=== PATIENT | male | born 1955 | race Caucasian/White ===

== ENCOUNTER 2017-09-15 11:43 | Inpatient (IN) | payer BC ==
[2017-09-15] VITALS (9 sets, daily range): BP systolic 109–145; BP diastolic 59–74
[~2017-09-15] VITALS: Ht 162.6 cm; Wt 94.0 kg
[2017-09-15] MEDS ORDERED: nitroGLYCERIN 1gm ointment UD TP ONE (12:05)
[2017-09-15 12:26] LABS: BASOPHILS % (AUTO) 0.2 % (0-1); EOSINOPHILS # (AUTO) 0.1 X10'3 (0-0.9); EOSINOPHILS % (AUTO) 0.7 % (0-6); HEMATOCRIT 44.5 % (42.0-52.0); HEMOGLOBIN 15.4 g/dl (14.0-17.9); LYMPHOCYTES # (AUTO) 4.1 X10'3 (1.1-4.8); LYMPHOCYTES % (AUTO) 27.9 % (21-51); MEAN CORPUSCULAR HEMOGLOBIN 30.6 PG (27.0-31.0); MEAN CORPUSCULAR HGB CONC 34.7 % (33.0-36.5); MEAN CORPUSCULAR VOLUME 88.3 FL (78-98); MEAN PLATELET VOLUME 9.7 FL (7.4-10.4); MONOCYTES # (AUTO) 0.7 X10'3 (0-0.9); MONOCYTES % (AUTO) 4.9 % (2-12); NEUTROPHILS # (AUTO) 9.9 X10'3 (1.8-7.7); NEUTROPHILS % (AUTO) 66.3 % (42-75); PLATELET COUNT 185 X10'3 (140-440); RED BLOOD COUNT 5.04 X10'6 (4.70-6.10); RED CELL DISTRIBUTION WIDTH 12.3 % (11.5-14.5); WHITE BLOOD COUNT 14.8 X10'3 (4.5-11.0)
[2017-09-15 12:46] LABS: ALANINE AMINOTRANSFERASE 42 U/L (12-78); ALBUMIN 3.9 G/DL (3.4-5.0); ALBUMIN/GLOBULIN RATIO 0.9 (1.1-1.5); ALKALINE PHOSPHATASE 93 IU/L (46-116); ANION GAP 11 (8-16); ASPARTATE AMINO TRANSFERASE 17 U/L (10-37); BILIRUBIN,TOTAL 0.4 MG/DL (0.1-1.0); BLOOD UREA NITROGEN 23 MG/DL (7-18); BUN/CREATININE RATIO 26.1 (5.4-32.0); CALCIUM 9.6 MG/DL (8.5-10.1); CHLORIDE 104 MMOL/L (99-107); CREATININE 0.88 MG/DL (0.60-1.10); GLUCOSE 218 MG/DL (70-104); MAGNESIUM 2.2 MG/DL (1.5-2.4); POTASSIUM 3.6 MMOL/L (3.5-5.1); SODIUM 142 MMOL/L (135-145); TOTAL CARBON DIOXIDE 26.8 MMOL/L (24-32); TOTAL PROTEIN 8.1 G/DL (6.4-8.2); eGFR 87 ML/MIN
[2017-09-15] MEDS ORDERED: morphine 4 MG/ML inj SYRINge IV ONE (13:10)
[2017-09-15] MEDS ORDERED: ondansetron/PF 4mg/2ml inj IV ONE (13:10)
[2017-09-15] MEDS ORDERED: CLON0.1T20 PO (13:27)
[2017-09-15] MEDS ORDERED: NIFE90TA44 PO (13:27)
[2017-09-15] MEDS ORDERED: ROSU10TA35 PO (13:27)
[2017-09-15] MEDS ORDERED: DICL-182 PO (13:27)
[2017-09-15] MEDS ORDERED: NITR0.4T48 (13:27)
[2017-09-15] MEDS ORDERED: METO25TA6 PO (13:27)
[2017-09-15] MEDS ORDERED: FURO40TA4 PO (13:27)
[2017-09-15] MEDS ORDERED: TRAM1TAB36 PO (13:28)
[2017-09-15] MEDS ORDERED: HYDROmorphone inj. 0.5 MG/0.5 ML DISP.SYRIN IV ONE (15:30)
[2017-09-15] MEDS ORDERED: iohexol 350MG/ML 100ml bottle IV ONE ×2 (15:35→16:36)
[2017-09-15 15:46] LABS: PARTIAL THROMBOPLASTIN TIME 27 SECONDS (22-32)
[2017-09-15] MEDS ORDERED: heparin, porcine 5000 units/ml vial ONE (16:23)
[2017-09-15] MEDS ORDERED: heparin, porcine 5000 units/ml vial IV SCH (16:30)
[2017-09-15] MEDS ORDERED: LIDOcaine 1% 30ml preserv. free vial ONE ×2 (16:36→17:16)
[2017-09-15] MEDS ORDERED: heparin 1,000unit/ml 10ml vial 10 ML ONE (16:49)
[2017-09-15] MEDS ORDERED: nitroGLYCERIN-Tridil 50MG/D5W 250 ML IV ONE (16:49)
[2017-09-15] MEDS ORDERED: midazolam 2 mg/2 ml injection ONE ×3 (16:49→17:21)
[2017-09-15] MEDS ORDERED: verapamil 2.5 mg/ml inj IV ONE (16:49)
[2017-09-15] MEDS ORDERED: fentaNYL/PF 50MCG/1 ML 2ML syringe ONE (16:49)
[2017-09-15] MEDS ORDERED: LIDOcaine 1%/PF (10mg/ml) 5ml vial ONE (16:50)
[2017-09-15] MEDS ORDERED: iohexol 350 MG/1 ML 200ml bottle ONE (17:41)
[2017-09-15] MEDS ORDERED: MESSAGE TO NURSING PO ONE ×3 (18:20)
[2017-09-15] MEDS ORDERED: nitroGLYCERIN 0.4mg SUBLingual tab SL SCH (18:20)
[2017-09-15] MEDS ORDERED: dextrose 50%-water 50ml dispensing syringe IV PRN (18:35)
[2017-09-15] MEDS ORDERED: chlorhexidine gluc 0.4% **topical ** 120ml btl. TP ONE (19:25)
[2017-09-15] MEDS ORDERED: heparin 10,000 units/1 ML INJ IV PRN (19:25)
[2017-09-15] MEDS ORDERED: HYDROcodone/acetaminophen 10/325mg tab PO PRN ×2 (20:00→20:30)
[2017-09-15] MEDS ORDERED: metoprolol tartrate 25mg tablet PO SCH (20:00)
[2017-09-15] MEDS ORDERED: nitroGLYCERIN 0.4mg SUBLingual tab SL PRN (20:00)
[2017-09-15] MEDS ORDERED: normal saline 1000ml 1,000 ML IV ONE (20:00)
[2017-09-15] MEDS ORDERED: ondansetron/PF 4mg/2ml inj IV PRN ×2 (20:00→20:30)
[2017-09-15] MEDS ORDERED: HYDROcodone/acetaminophen 5mg/325mg tablet PO PRN ×2 (20:00→20:30)
[2017-09-15] MEDS ORDERED: proCHLORperazine 10 MG/2 ml inj IV PRN (20:00)
[2017-09-15] MEDS ORDERED: normal saline 1000ml 1,000 ML IV SCH (20:29)
[2017-09-15] MEDS ORDERED: magnesium 2GM in 50ml NS 50 ML IV PRN (20:30)
[2017-09-15] MEDS ORDERED: K and/or MAG REPLACEMENT MC SCH (20:30)
[2017-09-15] MEDS ORDERED: magnesium Cl slow-release 64mg tablet PO PRN (20:30)
[2017-09-15] MEDS ORDERED: potassium Cl 40MEQ/NS 500ml 500 ML IV PRN ×2 (20:30)
[2017-09-15] MEDS ORDERED: morphine 4 MG/ML inj SYRINge IV PRN ×2 (20:30)
[2017-09-15] MEDS ORDERED: acetaminophen 325mg tablet PO PRN ×2 (20:30→21:00)
[2017-09-15] MEDS ORDERED: mag hydrox/Alum hydrox/simeth 30ml oral suspension PO PRN (20:30)
[2017-09-15] MEDS ORDERED: potassium Cl 20 mEq SR tablet PO PRN ×2 (20:30)
[2017-09-15] MEDS ORDERED: magnesium hydroxide 30ml (MOM) UD suspension PO PRN (20:30)
[2017-09-15] MEDS ORDERED: magnesium 4gm in 100ml NS 100 ML IV PRN (20:30)
[2017-09-15 20:42] LABS: PARTIAL THROMBOPLASTIN TIME 43 SECONDS (22-32)
[2017-09-15 20:44] LABS: ALBUMIN 3.4 G/DL (3.4-5.0); ANION GAP 9 (8-16); BLOOD UREA NITROGEN 16 MG/DL (7-18); BUN/CREATININE RATIO 22.5 (5.4-32.0); CALCIUM 8.8 MG/DL (8.5-10.1); CHLORIDE 107 MMOL/L (99-107); CREATININE 0.71 MG/DL (0.60-1.10); GLUCOSE 132 MG/DL (70-104); HEMOGLOBIN A1C 6.3 % (4.5-6.2); POTASSIUM 3.3 MMOL/L (3.5-5.1); SODIUM 145 MMOL/L (135-145); TOTAL CARBON DIOXIDE 29.4 MMOL/L (24-32); eGFR > 90 ML/MIN
[2017-09-15] MEDS ORDERED: cloNIDine 0.1 mg tablet PO SCH (21:00)
[2017-09-15] MEDS ORDERED: traMADol 50MG tablet PO PRN (21:00)
[2017-09-15] MEDS ORDERED: temazepam 15mg capsule PO PRN (21:00)
[2017-09-15 21:03] LABS: HEMOGLOBIN 14.1 g/dl (14.0-17.9); MEAN CORPUSCULAR HEMOGLOBIN 31.6 PG (27.0-31.0); MEAN CORPUSCULAR HGB CONC 35.3 % (33.0-36.5); MEAN CORPUSCULAR VOLUME 89.5 FL (78-98); MEAN PLATELET VOLUME 9.6 FL (7.4-10.4); PLATELET COUNT 172 X10'3 (140-440); RED BLOOD COUNT 4.47 X10'6 (4.70-6.10); WHITE BLOOD COUNT 15.6 X10'3 (4.5-11.0)
[2017-09-15] MEDS: mupirocin 2% ointment 22GM NS SCH (21:08)
[2017-09-16] VITALS (17 sets, daily range): BP systolic 126–170; BP diastolic 52–80
[2017-09-16 00:18] LABS: UA COLLECTION TYPE VOIDED
[2017-09-16 00:19] LABS: CLARITY,URINE CLEAR (Clear); COLOR,URINE YELLOW (Yellow); GLUCOSE, URINE NEGATIVE (Neg); KETONES,URINE NEGATIVE (Neg); LEUKOCYTE ESTERASE ,URINE NEGATIVE (Neg); NITRITES, URINE NEGATIVE (Neg); OCCULT BLOOD,URINE MODERATE (Neg); PROTEIN,URINE TRACE mg/dl (Neg); UROBILINOGEN,URINE 0.2 E.U/dL (0.2-1.0)
[2017-09-16 00:30] LABS: WBC,URINE 0-4 /HPF (0-4)
[2017-09-16 00:31] LABS: BACTERIA,URINE NONE SEEN /HPF (Neg); MUCUS STRANDS NONE SEEN /LPF (Neg); SQUAMOUS EPITHELIAL CELL,UR NONE SEEN /LPF (FEW)
[2017-09-16] MEDS ORDERED: OXAZEpam 15mg capsule PO PRN (00:45)
[2017-09-16] MEDS ORDERED: albuterol 2.5 MG/3 ML nebule ONE (00:50)
[2017-09-16] MEDS ORDERED: albuterol 2.5 MG/3 ML nebule NEB ONE (01:00)
[2017-09-16 01:16] LABS: ABG BASE EXCESS 0.1 mmol/L (-2.0-3.0); ABG HCO3 23.5 mmol/L (22.0-26.0); ABG OXYGEN SATURATION 94.9 % (95-98); ABG PCO2 (T) 33.4 mmHg (35.0-48.0); ABG PH (T) 7.462 (7.350-7.450); ABG PO2 (T) 68.7 mmHg (83-108); ALLEN'S TEST Positive; FCOHb 1.1 % (0.5-1.5); FMetHb 0.1 % (0.3-1.12); FO2Hb 93.8 % (94-100); TOTAL HEMOGLOBIN 14.4 G/dl (14.0-18.0)
[2017-09-16] MEDS ORDERED: MESSAGE TO NURSING PO ONE ×3 (05:00→10:00)
[2017-09-16] MEDS ORDERED: vancomycin/NS 1 GM ADD-VANTAGE 250 ML IV ONE (05:30)
[2017-09-16] MEDS ORDERED: ceFAZolin 2gm in dextrose, iso 100 ML IV ONE (05:30)
[2017-09-16] MEDS: mupirocin 2% ointment 22GM NS SCH ×2 (05:35→20:09)
[2017-09-16 05:57] LABS: ALANINE AMINOTRANSFERASE 54 U/L (12-78); ALBUMIN 3.1 G/DL (3.4-5.0); ALBUMIN/GLOBULIN RATIO 0.9 (1.1-1.5); ALKALINE PHOSPHATASE 73 IU/L (46-116); ANION GAP 11 (8-16); ASPARTATE AMINO TRANSFERASE 184 U/L (10-37); BILIRUBIN,TOTAL 0.5 MG/DL (0.1-1.0); BLOOD UREA NITROGEN 16 MG/DL (7-18); BUN/CREATININE RATIO 23.9 (5.4-32.0); CALCIUM 8.8 MG/DL (8.5-10.1); CHLORIDE 106 MMOL/L (99-107); CHOL/HDL RATIO 3.7 (0.00-4.99); CHOLESTEROL 140 MG/DL (0-200); CREATININE 0.67 MG/DL (0.60-1.10); GLUCOSE 107 MG/DL (70-104); HDL CHOLESTEROL 38 MG/DL (35-60); LDL CHOLESTEROL 79 MG/DL (50-100); MAGNESIUM 2.2 MG/DL (1.5-2.4); PHOSPHORUS 3.5 MG/DL (2.3-4.5); POTASSIUM 3.1 MMOL/L (3.5-5.1); SODIUM 144 MMOL/L (135-145); TOTAL CARBON DIOXIDE 27.3 MMOL/L (24-32); TOTAL PROTEIN 6.6 G/DL (6.4-8.2); TRIGLYCERIDES 130 MG/DL (20-135); eGFR > 90 ML/MIN
[2017-09-16 06:24] LABS: BASOPHILS % (AUTO) 0.2 % (0-1); EOSINOPHILS # (AUTO) 0.2 X10'3 (0-0.9); EOSINOPHILS % (AUTO) 1.4 % (0-6); HEMATOCRIT 36.9 % (42.0-52.0); LYMPHOCYTES # (AUTO) 4.2 X10'3 (1.1-4.8); LYMPHOCYTES % (AUTO) 32.4 % (21-51); MEAN CORPUSCULAR HEMOGLOBIN 31.5 PG (27.0-31.0); MEAN CORPUSCULAR HGB CONC 35.3 % (33.0-36.5); MEAN CORPUSCULAR VOLUME 89.2 FL (78-98); MEAN PLATELET VOLUME 9.8 FL (7.4-10.4); MONOCYTES # (AUTO) 0.8 X10'3 (0-0.9); MONOCYTES % (AUTO) 6.4 % (2-12); NEUTROPHILS # (AUTO) 7.8 X10'3 (1.8-7.7); NEUTROPHILS % (AUTO) 59.6 % (42-75); PLATELET COUNT 153 X10'3 (140-440); RED BLOOD COUNT 4.14 X10'6 (4.70-6.10); RED CELL DISTRIBUTION WIDTH 12.9 % (11.5-14.5)
[2017-09-16] MEDS ORDERED: ringers solution, lacted 1,000 ML IV ONE (06:29)
[2017-09-16] MEDS ORDERED: LORazepam 2 mg/ml vial IV ONE (06:30)
[2017-09-16] MEDS ORDERED: famotidine 20mg tablet PO ONE (06:40)
[2017-09-16] MEDS ORDERED: atorvastatin 20mg tablet PO SCH (08:00)
[2017-09-16] MEDS ORDERED: aspirin 81mg tab.chew PO SCH (08:00)
[2017-09-16 08:11] LABS: ABG BASE EXCESS -1.4 mmol/L (-2.0-3.0); ABG OXYGEN SATURATION 99.4 % (95-98); ABG PCO2 37.5 mmHg (35.0-45.0); ABG PH 7.406 (7.350-7.450); ABG PO2 290.9 mmHg (60.0-100.0); CL (ABG) 107 mmol/L (99-107); FCOHb 0.7 % (0.5-1.5); FMetHb 0.3 % (0.3-1.12); FO2Hb 98.4 % (94-100); GLUCOSE (ABG) 121 mg/dl (70-105); IONIZED CA (ABG) 1.15 mmol/L (1.03-1.32); K (ABG) 3.1 mmol/L (3.3-5.1); NA (ABG) 140 mmol/L (135-145); TOTAL HEMOGLOBIN 11.7 G/dl (14.0-18.0)
[2017-09-16] MEDS ORDERED: papaverine 30 mg/ml 2ml inj. IA ONE (08:23)
[2017-09-16] MEDS ORDERED: heparin 10,000 units/1 ML INJ IR ONE (08:24)
[2017-09-16 08:56] LABS: ACT @ 1.70 U 298 SEC (193-297); ACT @ 2.84 U 390 SEC (260-420); BASELINE ACT 148 SEC (101-148)
[2017-09-16] MEDS ORDERED: insulin Lispro (HumaLOG) vial - multi-dose SQ SCH (09:00)
[2017-09-16 09:55] LABS: ABG BASE EXCESS -0.5 mmol/L (-2.0-3.0); ABG HCO3 24.2 mmol/L (22.0-26.0); ABG PCO2 40.2 mmHg (35.0-45.0); ABG PH 7.398 (7.350-7.450); ABG PO2 375.3 mmHg (60.0-100.0); CL (ABG) 107 mmol/L (99-107); FCOHb 0.3 % (0.5-1.5); FMetHb 0.5 % (0.3-1.12); FO2Hb 98.2 % (94-100); GLUCOSE (ABG) 131 mg/dl (70-105); IONIZED CA (ABG) 1.04 mmol/L (1.03-1.32); NA (ABG) 137 mmol/L (135-145); TOTAL HEMOGLOBIN 9.9 G/dl (14.0-18.0)
[2017-09-16 10:10] LABS: ABG BASE EXCESS VENOUS -0.8 mmol/L; ABG HCO3 VENOUS 24.5 mmol/L; ABG PCO2 VENOUS 42.8 mmHg; ABG PO2 VENOUS 52.2 mmHg; CL (ABG) 107 mmol/L (99-107); FCOHb VENOUS 0.3 %; FHHb VENOUS 13.1 %; FMetHb VENOUS 0.4 %; FO2Hb VENOUS 86.2 %; GLUCOSE (ABG) 131 mg/dl (70-105); IONIZED CA (ABG) 1.07 mmol/L (1.03-1.32); K (ABG) 3.8 mmol/L (3.3-5.1); NA (ABG) 137 mmol/L (135-145); TOTAL HEMOGLOBIN 10.3 G/dl (14.0-18.0)
[2017-09-16 10:46] LABS: ABG BASE EXCESS -0.1 mmol/L (-2.0-3.0); ABG HCO3 23.5 mmol/L (22.0-26.0); ABG OXYGEN SATURATION 98.9 % (95-98); ABG PCO2 34.4 mmHg (35.0-45.0); ABG PH 7.453 (7.350-7.450); ABG PO2 392.4 mmHg (60.0-100.0); CL (ABG) 109 mmol/L (99-107); FCOHb 0.3 % (0.5-1.5); FMetHb 0.5 % (0.3-1.12); FO2Hb 98.1 % (94-100); GLUCOSE (ABG) 136 mg/dl (70-105); IONIZED CA (ABG) 1.03 mmol/L (1.03-1.32); K (ABG) 4.1 mmol/L (3.3-5.1); NA (ABG) 135 mmol/L (135-145); TOTAL HEMOGLOBIN 9.5 G/dl (14.0-18.0)
[2017-09-16 11:30] LABS: ABG BASE EXCESS 1.9 mmol/L (-2.0-3.0); ABG HCO3 25.9 mmol/L (22.0-26.0); ABG PH 7.452 (7.350-7.450); ABG PO2 500.4 mmHg (60.0-100.0); CL (ABG) 108 mmol/L (99-107); FMetHb 0.4 % (0.3-1.12); FO2Hb 98.6 % (94-100); GLUCOSE (ABG) 134 mg/dl (70-105); IONIZED CA (ABG) 1.47 mmol/L (1.03-1.32); NA (ABG) 136 mmol/L (135-145); TOTAL HEMOGLOBIN 8.7 G/dl (14.0-18.0)
[2017-09-16 12:00] LABS: ABG BASE EXCESS 0.5 mmol/L (-2.0-3.0); ABG HCO3 24.9 mmol/L (22.0-26.0); ABG OXYGEN SATURATION 98.4 % (95-98); ABG PCO2 38.8 mmHg (35.0-45.0); ABG PH 7.425 (7.350-7.450); ABG PO2 155.8 mmHg (60.0-100.0); CL (ABG) 108 mmol/L (99-107); FCOHb 0.3 % (0.5-1.5); FMetHb 0.3 % (0.3-1.12); FO2Hb 97.8 % (94-100); GLUCOSE (ABG) 146 mg/dl (70-105); IONIZED CA (ABG) 1.24 mmol/L (1.03-1.32); K (ABG) 3.9 mmol/L (3.3-5.1); NA (ABG) 138 mmol/L (135-145); TOTAL HEMOGLOBIN 9.9 G/dl (14.0-18.0)
[2017-09-16] MEDS ORDERED: sodium chloride 0.45% 1,000 ML IV SCH (12:36)
[2017-09-16] MEDS ORDERED: DOPamine 400mg/D5W 250ml 250 ML IV PRN (12:36)
[2017-09-16] MEDS ORDERED: metoclopramide 5 mg/ml inj IV PRN (12:40)
[2017-09-16] MEDS ORDERED: acetaminophen 325mg tablet PO PRN (12:40)
[2017-09-16] MEDS ORDERED: ondansetron/PF 4mg/2ml inj IV PRN (12:40)
[2017-09-16] MEDS ORDERED: magnesium 2GM in 50ml NS 50 ML IV PRN (12:40)
[2017-09-16] MEDS ORDERED: dextrose 50%-water 50ml dispensing syringe IV PRN (12:40)
[2017-09-16] MEDS ORDERED: morphine 4 MG/ML inj SYRINge IV PRN ×3 (12:40→14:25)
[2017-09-16] MEDS: insulin regular, human inj. 100 UNITS in normal saline 100ml IV soln 100 ML IV SCH ×4 (12:40→12:57)
[2017-09-16] MEDS ORDERED: magnesium 4gm in 100ml NS 100 ML IV PRN (12:40)
[2017-09-16] MEDS ORDERED: HYDROcodone/acetaminophen 10/325mg tab PO PRN (12:40)
[2017-09-16] MEDS ORDERED: Neutra Phos packet PO PRN (12:40)
[2017-09-16] MEDS ORDERED: sodium phosphate inj. 30 MMOL in dextrose 5%-water 250 ML IV PRN (12:40)
[2017-09-16] MEDS ORDERED: albumin (Human) 5% 250ml 250 ML IV PRN (12:40)
[2017-09-16] MEDS ORDERED: magnesium hydroxide 30ml (MOM) UD suspension PO PRN (12:40)
[2017-09-16] MEDS ORDERED: normal saline 250ml IV soln 250 ML IV PRN (12:40)
[2017-09-16] MEDS ORDERED: potassium Cl 20mEq/100mL bag 100 ML IV PRN ×2 (12:40)
[2017-09-16] MEDS ORDERED: sodium phosphate inj. 15 MMOL in dextrose 5%-water 150 ML IV PRN (12:40)
[2017-09-16 12:55] LABS: ACTIVATED CLOTTING TIME 148 SEC (101-148)
[2017-09-16] MEDS: insulin Lispro (HumaLOG) vial - multi-dose SQ SCH ×2 (13:00→17:54)
[2017-09-16 13:07] LABS: BASOPHILS % (AUTO) 0.3 % (0-1); EOSINOPHILS # (AUTO) 0.1 X10'3 (0-0.9); EOSINOPHILS % (AUTO) 0.3 % (0-6); HEMATOCRIT 32.6 % (42.0-52.0); HEMOGLOBIN 11.3 g/dl (14.0-17.9); LYMPHOCYTES # (AUTO) 3.4 X10'3 (1.1-4.8); LYMPHOCYTES % (AUTO) 19.5 % (21-51); MEAN CORPUSCULAR HEMOGLOBIN 30.6 PG (27.0-31.0); MEAN CORPUSCULAR HGB CONC 34.6 % (33.0-36.5); MEAN CORPUSCULAR VOLUME 88.6 FL (78-98); MEAN PLATELET VOLUME 9.2 FL (7.4-10.4); MONOCYTES # (AUTO) 0.5 X10'3 (0-0.9); MONOCYTES % (AUTO) 2.9 % (2-12); NEUTROPHILS # (AUTO) 13.4 X10'3 (1.8-7.7); PLATELET COUNT 121 X10'3 (140-440); RED BLOOD COUNT 3.68 X10'6 (4.70-6.10); RED CELL DISTRIBUTION WIDTH 12.9 % (11.5-14.5); WHITE BLOOD COUNT 17.4 X10'3 (4.5-11.0)
[2017-09-16 13:15] LABS: ABG BASE EXCESS -3.6 mmol/L (-2.0-3.0); ABG HCO3 22.2 mmol/L (22.0-26.0); ABG OXYGEN SATURATION 91.6 % (95-98); ABG PO2 (T) 68.7 mmHg (83-108); FCOHb 0.3 % (0.5-1.5); FMetHb 0.2 % (0.3-1.12); FO2Hb 91.1 % (94-100); MINUTE VOLUME 7 L/min; PEEP 5 cm H2O; RESPIRATORY RATE 12 b/min; RESPIRATORY RATE (OBSERVED) 12 b/min; TIDAL VOLUME 500 mL; TOTAL HEMOGLOBIN 12.2 G/dl (14.0-18.0)
[2017-09-16] MEDS: niCARDipine/sod cl 20mg/200ml 200 ML IV PRN ×5 (13:21→23:34)
[2017-09-16 13:23] LABS: ALANINE AMINOTRANSFERASE 37 U/L (12-78); ALBUMIN 2.5 G/DL (3.4-5.0); ALKALINE PHOSPHATASE 53 IU/L (46-116); ANION GAP 8 (8-16); ASPARTATE AMINO TRANSFERASE 112 U/L (10-37); BILIRUBIN,TOTAL 0.5 MG/DL (0.1-1.0); BLOOD UREA NITROGEN 14 MG/DL (7-18); BUN/CREATININE RATIO 16.7 (5.4-32.0); CALCIUM 8.2 MG/DL (8.5-10.1); CHLORIDE 111 MMOL/L (99-107); CREATININE 0.84 MG/DL (0.60-1.10); GLUCOSE 143 MG/DL (70-104); MAGNESIUM 3.8 MG/DL (1.5-2.4); PHOSPHORUS 1.8 MG/DL (2.3-4.5); POTASSIUM 3.6 MMOL/L (3.5-5.1); SODIUM 146 MMOL/L (135-145); TOTAL CARBON DIOXIDE 27.4 MMOL/L (24-32); eGFR > 90 ML/MIN
[2017-09-16 13:52] LABS: INR 1.1 INR; PARTIAL THROMBOPLASTIN TIME 26 SECONDS (22-32); PROTHROMBIN TIME 11.3 SECONDS (9.0-12.0)
[2017-09-16 14:11] LABS: ABG BASE EXCESS -6.7 mmol/L (-2.0-3.0); ABG HCO3 19.2 mmol/L (22.0-26.0); ABG OXYGEN SATURATION 88.7 % (95-98); ABG PCO2 (T) 39.5 mmHg (35.0-48.0); ABG PH (T) 7.304 (7.350-7.450); ABG PO2 (T) 60.4 mmHg (83-108); FCOHb 0.6 % (0.5-1.5); FMetHb 0.3 % (0.3-1.12); FO2Hb 87.9 % (94-100); MINUTE VOLUME 11 L/min; PEEP 5 cm H2O; RESPIRATORY RATE 12 b/min; RESPIRATORY RATE (OBSERVED) 15 b/min; TOTAL HEMOGLOBIN 12.9 G/dl (14.0-18.0)
[2017-09-16] MEDS ORDERED: propofol 1000mg/100ml bottle 100 ML IV ONE (14:21)
[2017-09-16] MEDS ORDERED: propofol 1000mg/100ml bottle 100 ML IV PRN ×2 (14:23→20:20)
[2017-09-16] MEDS: potassium Cl 20mEq/100mL bag 100 ML IV PRN ×2 (15:01→21:08)
[2017-09-16] MEDS: ceFAZolin 1GM/D5W- ADD-VANTAGE 50 ML IV SCH ×2 (16:16→23:55)
[2017-09-16] MEDS: morphine 4 MG/ML inj SYRINge IV PRN ×2 (16:23→21:19)
[2017-09-16 18:11] LABS: BASOPHILS % (AUTO) 0 % (0-1); EOSINOPHILS # (AUTO) 0.2 X10'3 (0-0.9); HEMATOCRIT 32.9 % (42.0-52.0); HEMOGLOBIN 11.7 g/dl (14.0-17.9); LYMPHOCYTES # (AUTO) 2.6 X10'3 (1.1-4.8); LYMPHOCYTES % (AUTO) 13.7 % (21-51); MEAN CORPUSCULAR HEMOGLOBIN 31.3 PG (27.0-31.0); MEAN CORPUSCULAR HGB CONC 35.6 % (33.0-36.5); MEAN CORPUSCULAR VOLUME 87.9 FL (78-98); MEAN PLATELET VOLUME 9.4 FL (7.4-10.4); MONOCYTES # (AUTO) 0.5 X10'3 (0-0.9); MONOCYTES % (AUTO) 2.5 % (2-12); NEUTROPHILS # (AUTO) 15.9 X10'3 (1.8-7.7); NEUTROPHILS % (AUTO) 82.8 % (42-75); PLATELET COUNT 146 X10'3 (140-440); RED BLOOD COUNT 3.75 X10'6 (4.70-6.10); RED CELL DISTRIBUTION WIDTH 12.9 % (11.5-14.5); WHITE BLOOD COUNT 19.2 X10'3 (4.5-11.0)
[2017-09-16 18:20] LABS: ALBUMIN 2.7 G/DL (3.4-5.0); ANION GAP 8 (8-16); BLOOD UREA NITROGEN 17 MG/DL (7-18); BUN/CREATININE RATIO 18.1 (5.4-32.0); CALCIUM 8.2 MG/DL (8.5-10.1); CHLORIDE 111 MMOL/L (99-107); CREATININE 0.94 MG/DL (0.60-1.10); GLUCOSE 190 MG/DL (70-104); POTASSIUM 3.9 MMOL/L (3.5-5.1); SODIUM 145 MMOL/L (135-145); eGFR 81 ML/MIN
[2017-09-16] MEDS: docusate sod 100mg capsule PO SCH (20:00)
[2017-09-16] MEDS: vancomycin/NS 1 GM ADD-VANTAGE 250 ML IV SCH (20:09)
[2017-09-16] MEDS: nitroGLYCERIN-Tridil 50MG/D5W 250 ML IV PRN (20:54)
[2017-09-17] VITALS (24 sets, daily range): BP systolic 114–171; BP diastolic 51–85
[2017-09-17] MEDS: niCARDipine/sod cl 20mg/200ml 200 ML IV PRN ×5 (01:33→13:09)
[2017-09-17 02:49] LABS: BASOPHILS % (AUTO) 0 % (0-1); EOSINOPHILS # (AUTO) 0.2 X10'3 (0-0.9); EOSINOPHILS % (AUTO) 1.2 % (0-6); HEMATOCRIT 29.8 % (42.0-52.0); HEMOGLOBIN 10.3 g/dl (14.0-17.9); LYMPHOCYTES # (AUTO) 2.6 X10'3 (1.1-4.8); LYMPHOCYTES % (AUTO) 14.9 % (21-51); MEAN CORPUSCULAR HEMOGLOBIN 30.9 PG (27.0-31.0); MEAN CORPUSCULAR HGB CONC 34.7 % (33.0-36.5); MEAN CORPUSCULAR VOLUME 89.1 FL (78-98); MEAN PLATELET VOLUME 9.8 FL (7.4-10.4); MONOCYTES # (AUTO) 0.8 X10'3 (0-0.9); MONOCYTES % (AUTO) 4.3 % (2-12); NEUTROPHILS # (AUTO) 14.1 X10'3 (1.8-7.7); NEUTROPHILS % (AUTO) 79.6 % (42-75); PLATELET COUNT 137 X10'3 (140-440); RED BLOOD COUNT 3.35 X10'6 (4.70-6.10); RED CELL DISTRIBUTION WIDTH 12.8 % (11.5-14.5); WHITE BLOOD COUNT 17.7 X10'3 (4.5-11.0)
[2017-09-17 03:01] LABS: PARTIAL THROMBOPLASTIN TIME 25 SECONDS (22-32); PROTHROMBIN TIME 10.7 SECONDS (9.0-12.0)
[2017-09-17 03:09] LABS: ALANINE AMINOTRANSFERASE 31 U/L (12-78); ALBUMIN 2.5 G/DL (3.4-5.0); ALBUMIN/GLOBULIN RATIO 0.9 (1.1-1.5); ALKALINE PHOSPHATASE 49 IU/L (46-116); ANION GAP 11 (8-16); ASPARTATE AMINO TRANSFERASE 80 U/L (10-37); BILIRUBIN,TOTAL 0.3 MG/DL (0.1-1.0); BLOOD UREA NITROGEN 23 MG/DL (7-18); BUN/CREATININE RATIO 19.5 (5.4-32.0); CHLORIDE 111 MMOL/L (99-107); CREATININE 1.18 MG/DL (0.60-1.10); GLUCOSE 131 MG/DL (70-104); MAGNESIUM 2.8 MG/DL (1.5-2.4); PHOSPHORUS 3.2 MG/DL (2.3-4.5); POTASSIUM 3.7 MMOL/L (3.5-5.1); SODIUM 145 MMOL/L (135-145); TOTAL CARBON DIOXIDE 22.6 MMOL/L (24-32); TOTAL PROTEIN 5.2 G/DL (6.4-8.2); eGFR 62 ML/MIN
[2017-09-17 03:30] LABS: ABG BASE EXCESS -1.2 mmol/L (-2.0-3.0); ABG HCO3 22.8 mmol/L (22.0-26.0); ABG OXYGEN SATURATION 95.9 % (95-98); ABG PCO2 (T) 37.1 mmHg (35.0-48.0); ABG PH (T) 7.411 (7.350-7.450); ABG PO2 (T) 89.5 mmHg (83-108); FCOHb 0.2 % (0.5-1.5); FMetHb 0.1 % (0.3-1.12); FO2Hb 95.6 % (94-100); MINUTE VOLUME 11 L/min; PEEP 12 cm H2O; RESPIRATORY RATE 12 b/min; RESPIRATORY RATE (OBSERVED) 20 b/min; TIDAL VOLUME 500 mL; TOTAL HEMOGLOBIN 11.1 G/dl (14.0-18.0)
[2017-09-17] MEDS: potassium Cl 20mEq/100mL bag 100 ML IV PRN ×2 (03:32→04:35)
[2017-09-17] MEDS: morphine 4 MG/ML inj SYRINge IV PRN ×5 (04:31→21:20)
[2017-09-17] MEDS: insulin regular, human inj. 100 UNITS in normal saline 100ml IV soln 100 ML IV SCH ×4 (05:04→05:11)
[2017-09-17] MEDS: nitroGLYCERIN-Tridil 50MG/D5W 250 ML IV PRN ×2 (05:06→12:36)
[2017-09-17] MEDS ORDERED: famotidine 20mg tablet PO ONE (06:00)
[2017-09-17] MEDS: pantoprazole 40mg Tablet.DR PO SCH (07:22)
[2017-09-17] MEDS: atorvastatin 10mg tablet PO SCH (07:22)
[2017-09-17] MEDS: ceFAZolin 1GM/D5W- ADD-VANTAGE 50 ML IV SCH ×3 (07:22→23:47)
[2017-09-17] MEDS: cloNIDine 0.1 mg tablet PO SCH ×3 (07:28→20:43)
[2017-09-17] MEDS: vancomycin/NS 1 GM ADD-VANTAGE 250 ML IV SCH ×2 (07:29→19:47)
[2017-09-17] MEDS: metoprolol tartrate 50mg tablet PO SCH ×2 (07:29→19:48)
[2017-09-17] MEDS: mupirocin 2% ointment 22GM NS SCH ×2 (07:42→19:48)
[2017-09-17] MEDS: docusate sod 100mg capsule PO SCH ×2 (08:00→12:38)
[2017-09-17] MEDS ORDERED: metoprolol tartrate 12.5mg (1/2 tablet) PO SCH (08:00)
[2017-09-17] MEDS: aspirin 325mg tablet, delayed-release (Ecotrin) PO SCH ×2 (08:00→12:37)
[2017-09-17] MEDS: insulin Lispro (HumaLOG) vial - multi-dose SQ SCH ×3 (08:55→16:22)
[2017-09-17 10:41] LABS: ABG BASE EXCESS -2.1 mmol/L (-2.0-3.0); ABG OXYGEN SATURATION 96.7 % (95-98); ABG PCO2 (T) 29.1 mmHg (35.0-48.0); ABG PH (T) 7.476 (7.350-7.450); FCOHb 0.3 % (0.5-1.5); FO2Hb 96.4 % (94-100); MINUTE VOLUME 9 L/min; PEEP 5 cm H2O; TOTAL HEMOGLOBIN 8.1 G/dl (14.0-18.0)
[2017-09-17] MEDS: HYDROcodone/acetaminophen 10/325mg tab PO PRN (12:33)
[2017-09-17] MEDS: ketorolac tromethamine 15mg/ml inj. IV PRN (20:39)
[2017-09-18] VITALS (23 sets, daily range): BP systolic 98–145; BP diastolic 53–82
[2017-09-18] MEDS: morphine 4 MG/ML inj SYRINge IV PRN ×2 (03:53→10:26)
[2017-09-18 05:13] LABS: BASOPHILS % (AUTO) 0.1 % (0-1); EOSINOPHILS # (AUTO) 0.1 X10'3 (0-0.9); EOSINOPHILS % (AUTO) 0.6 % (0-6); HEMATOCRIT 26.8 % (42.0-52.0); HEMOGLOBIN 9.5 g/dl (14.0-17.9); LYMPHOCYTES % (AUTO) 16.8 % (21-51); MEAN CORPUSCULAR HEMOGLOBIN 31.3 PG (27.0-31.0); MEAN CORPUSCULAR HGB CONC 35.3 % (33.0-36.5); MEAN CORPUSCULAR VOLUME 88.6 FL (78-98); MEAN PLATELET VOLUME 9.5 FL (7.4-10.4); MONOCYTES # (AUTO) 1.1 X10'3 (0-0.9); MONOCYTES % (AUTO) 6.3 % (2-12); NEUTROPHILS # (AUTO) 13.5 X10'3 (1.8-7.7); NEUTROPHILS % (AUTO) 76.2 % (42-75); PLATELET COUNT 135 X10'3 (140-440); RED BLOOD COUNT 3.03 X10'6 (4.70-6.10); WHITE BLOOD COUNT 17.7 X10'3 (4.5-11.0)
[2017-09-18 05:51] LABS: ALBUMIN 2.4 G/DL (3.4-5.0); ANION GAP 7 (8-16); BLOOD UREA NITROGEN 21 MG/DL (7-18); CALCIUM 8.1 MG/DL (8.5-10.1); CHLORIDE 109 MMOL/L (99-107); CREATININE 0.75 MG/DL (0.60-1.10); GLUCOSE 158 MG/DL (70-104); MAGNESIUM 2.6 MG/DL (1.5-2.4); PHOSPHORUS 3.1 MG/DL (2.3-4.5); POTASSIUM 4.8 MMOL/L (3.5-5.1); SODIUM 143 MMOL/L (135-145); TOTAL CARBON DIOXIDE 26.7 MMOL/L (24-32); eGFR > 90 ML/MIN
[2017-09-18] MEDS: ketorolac tromethamine 15mg/ml inj. IV PRN (06:00)
[2017-09-18] MEDS: cloNIDine 0.1 mg tablet PO SCH ×3 (08:09→20:14)
[2017-09-18] MEDS: pantoprazole 40mg Tablet.DR PO SCH (08:09)
[2017-09-18] MEDS: atorvastatin 10mg tablet PO SCH (08:09)
[2017-09-18] MEDS: metoprolol tartrate 50mg tablet PO SCH ×2 (08:09→20:14)
[2017-09-18] MEDS: docusate sod 100mg capsule PO SCH ×2 (08:09→20:14)
[2017-09-18] MEDS: mupirocin 2% ointment 22GM NS SCH (08:14)
[2017-09-18] MEDS: HYDROcodone/acetaminophen 10/325mg tab PO PRN ×4 (08:14→20:13)
[2017-09-18] MEDS: insulin Lispro (HumaLOG) vial - multi-dose SQ SCH (09:00)
[2017-09-18] MEDS ORDERED: aspirin 325mg tablet, delayed-release (Ecotrin) PO ONE (10:50)
[2017-09-18] MEDS ORDERED: glucagon, human recombinant 1mg kit SUBCUT PRN (14:05)
[2017-09-18] MEDS ORDERED: insulin Lispro (HumaLOG) vial - multi-dose SQ SCH (14:05)
[2017-09-18] MEDS ORDERED: dextrose 50%-water 50ml dispensing syringe IV PRN ×2 (14:05)
[2017-09-18] MEDS ORDERED: dextrose ORAL solution 15 GM/59 ML bottle PO PRN ×2 (14:05)
[2017-09-18] MEDS: insulin glargine (Lantus) pen - multi-dose SQ SCH (21:00)
[2017-09-19] VITALS (24 sets, daily range): BP systolic 75–151; BP diastolic 49–77
[2017-09-19] MEDS: HYDROcodone/acetaminophen 10/325mg tab PO PRN ×4 (01:21→20:02)
[2017-09-19] MEDS: morphine 4 MG/ML inj SYRINge IV PRN ×2 (04:17→17:43)
[2017-09-19 05:28] LABS: BASOPHILS % (AUTO) 0.2 % (0-1); EOSINOPHILS # (AUTO) 0.1 X10'3 (0-0.9); EOSINOPHILS % (AUTO) 0.8 % (0-6); HEMATOCRIT 26.5 % (42.0-52.0); HEMOGLOBIN 9.3 g/dl (14.0-17.9); LYMPHOCYTES # (AUTO) 3.7 X10'3 (1.1-4.8); LYMPHOCYTES % (AUTO) 27.4 % (21-51); MEAN CORPUSCULAR HEMOGLOBIN 31.2 PG (27.0-31.0); MEAN CORPUSCULAR VOLUME 89.1 FL (78-98); MEAN PLATELET VOLUME 9.4 FL (7.4-10.4); MONOCYTES # (AUTO) 0.9 X10'3 (0-0.9); MONOCYTES % (AUTO) 6.6 % (2-12); NEUTROPHILS # (AUTO) 8.8 X10'3 (1.8-7.7); PLATELET COUNT 155 X10'3 (140-440); RED BLOOD COUNT 2.97 X10'6 (4.70-6.10); RED CELL DISTRIBUTION WIDTH 12.8 % (11.5-14.5); WHITE BLOOD COUNT 13.5 X10'3 (4.5-11.0)
[2017-09-19 05:51] LABS: ALBUMIN 2.6 G/DL (3.4-5.0); ANION GAP 7 (8-16); BLOOD UREA NITROGEN 29 MG/DL (7-18); BUN/CREATININE RATIO 34.9 (5.4-32.0); CALCIUM 8.6 MG/DL (8.5-10.1); CHLORIDE 107 MMOL/L (99-107); CREATININE 0.83 MG/DL (0.60-1.10); GLUCOSE 131 MG/DL (70-104); MAGNESIUM 2.7 MG/DL (1.5-2.4); POTASSIUM 4.3 MMOL/L (3.5-5.1); SODIUM 142 MMOL/L (135-145); TOTAL CARBON DIOXIDE 28.1 MMOL/L (24-32); eGFR > 90 ML/MIN
[2017-09-19] MEDS: aspirin 325mg tablet, delayed-release (Ecotrin) PO SCH (07:14)
[2017-09-19] MEDS: atorvastatin 10mg tablet PO SCH (07:14)
[2017-09-19] MEDS: ketorolac tromethamine 15mg/ml inj. IV PRN ×3 (07:14→21:48)
[2017-09-19] MEDS: pantoprazole 40mg Tablet.DR PO SCH (07:15)
[2017-09-19] MEDS: docusate sod 100mg capsule PO SCH ×2 (07:15→20:02)
[2017-09-19] MEDS: metoprolol tartrate 50mg tablet PO SCH ×2 (07:15→20:03)
[2017-09-19] MEDS: cloNIDine 0.1 mg tablet PO SCH ×3 (07:15→21:48)
[2017-09-19] MEDS ORDERED: magnesium citrate 296ml oral solution PO ONE (10:20)
[2017-09-19] MEDS: furosemide 20 MG/2 ML vial IV SCH ×2 (11:45→20:04)
[2017-09-19] MEDS: Protein Shake (high protein) 240ml (8oz) cup PO SCH (18:00)
[2017-09-19] MEDS: insulin glargine (Lantus) pen - multi-dose SQ SCH (21:00)
[2017-09-20] VITALS (8 sets, daily range): BP systolic 99–124; BP diastolic 53–72
[2017-09-20] MEDS: HYDROcodone/acetaminophen 10/325mg tab PO PRN ×2 (00:44→05:04)
[2017-09-20] MEDS: morphine 4 MG/ML inj SYRINge IV PRN (02:36)
[2017-09-20] MEDS: ketorolac tromethamine 15mg/ml inj. IV PRN (05:03)
[2017-09-20 05:30] LABS: BASOPHILS % (AUTO) 0.2 % (0-1); EOSINOPHILS # (AUTO) 0.2 X10'3 (0-0.9); EOSINOPHILS % (AUTO) 1.3 % (0-6); HEMATOCRIT 26.8 % (42.0-52.0); HEMOGLOBIN 9.4 g/dl (14.0-17.9); LYMPHOCYTES # (AUTO) 4.6 X10'3 (1.1-4.8); LYMPHOCYTES % (AUTO) 34.2 % (21-51); MEAN CORPUSCULAR HEMOGLOBIN 31.4 PG (27.0-31.0); MEAN CORPUSCULAR VOLUME 89.5 FL (78-98); MEAN PLATELET VOLUME 9.6 FL (7.4-10.4); MONOCYTES % (AUTO) 7.4 % (2-12); NEUTROPHILS # (AUTO) 7.7 X10'3 (1.8-7.7); NEUTROPHILS % (AUTO) 56.9 % (42-75); PLATELET COUNT 189 X10'3 (140-440); RED BLOOD COUNT 2.99 X10'6 (4.70-6.10); RED CELL DISTRIBUTION WIDTH 12.8 % (11.5-14.5); WHITE BLOOD COUNT 13.4 X10'3 (4.5-11.0)
[2017-09-20 05:49] LABS: ALBUMIN 2.7 G/DL (3.4-5.0); ANION GAP 10 (8-16); BLOOD UREA NITROGEN 30 MG/DL (7-18); BUN/CREATININE RATIO 38.5 (5.4-32.0); CALCIUM 8.8 MG/DL (8.5-10.1); CHLORIDE 105 MMOL/L (99-107); CREATININE 0.78 MG/DL (0.60-1.10); GLUCOSE 122 MG/DL (70-104); MAGNESIUM 2.5 MG/DL (1.5-2.4); PHOSPHORUS 4.4 MG/DL (2.3-4.5); POTASSIUM 3.9 MMOL/L (3.5-5.1); SODIUM 143 MMOL/L (135-145); TOTAL CARBON DIOXIDE 27.9 MMOL/L (24-32); eGFR > 90 ML/MIN
[2017-09-20] MEDS ORDERED: CLON0.1T20 PO (07:26)
[2017-09-20] MEDS ORDERED: HYDR-3972 PO (07:26)
[2017-09-20] MEDS ORDERED: COL100C PO (07:26)
[2017-09-20] MEDS ORDERED: METO50TA16 PO (07:26)
[2017-09-20] MEDS ORDERED: ASPI-41 PO (07:26)
[2017-09-20] MEDS ORDERED: cloNIDine 0.1 mg tablet PO SCH (08:00)
[2017-09-20] MEDS: aspirin 325mg tablet, delayed-release (Ecotrin) PO SCH (08:10)
[2017-09-20] MEDS: furosemide 20 MG/2 ML vial IV SCH (08:10)
[2017-09-20] MEDS: pantoprazole 40mg Tablet.DR PO SCH (08:10)
[2017-09-20] MEDS: metoprolol tartrate 50mg tablet PO SCH (08:11)
[2017-09-20] MEDS: docusate sod 100mg capsule PO SCH (08:11)
[2017-09-20] MEDS: atorvastatin 10mg tablet PO SCH (08:11)
[2017-09-20] MEDS: Protein Shake (high protein) 240ml (8oz) cup PO SCH (08:12)
== END 2017-09-20 09:15 | disposition home health service (06) | DRG 231 ==
LOC: ER 11:43 → OBSVTOIN 13:15 → ED HOLD 13:15 → PCU 3S 19:13 → PACU 09-16 07:00 → CICU 2S 09-16 12:19
PROVIDERS: ADMIT Family Medicine; ATTEND Thoracic Surgery (Cardiothoracic Vascular Surgery)
PROC: 4A023N7 Measurement of Cardiac Sampling and Pressure, Left Heart, Percutaneous Approach (ICD-10-PCS; principal; 2017-09-15)
PROC: 02703ZZ Dilation of Coronary Artery, One Artery, Percutaneous Approach (ICD-10-PCS; 2017-09-15)
PROC: B2111ZZ Fluoroscopy of Multiple Coronary Arteries using Low Osmolar Contrast (ICD-10-PCS; 2017-09-15)
PROC: B2151ZZ Fluoroscopy of Left Heart using Low Osmolar Contrast (ICD-10-PCS; 2017-09-15)
PROC: B2181ZZ Fluoroscopy of Left Internal Mammary Bypass Graft using Low Osmolar Contrast (ICD-10-PCS; 2017-09-15)
PROC: B2171ZZ Fluoroscopy of Right Internal Mammary Bypass Graft using Low Osmolar Contrast (ICD-10-PCS; 2017-09-15)
PROC: B3111ZZ Fluoroscopy of Right Brachiocephalic-Subclavian Artery using Low Osmolar Contrast (ICD-10-PCS; 2017-09-15)
PROC: B3121ZZ Fluoroscopy of Left Subclavian Artery using Low Osmolar Contrast (ICD-10-PCS; 2017-09-15)
PROC: B41F1ZZ Fluoroscopy of Right Lower Extremity Arteries using Low Osmolar Contrast (ICD-10-PCS; 2017-09-15)
PROC: B3201ZZ Computerized Tomography (CT Scan) of Thoracic Aorta using Low Osmolar Contrast (ICD-10-PCS; 2017-09-15)
PROC: B4201ZZ Computerized Tomography (CT Scan) of Abdominal Aorta using Low Osmolar Contrast (ICD-10-PCS; 2017-09-15)
PROC: 02100Z9 Bypass Coronary Artery, One Artery from Left Internal Mammary, Open Approach (ICD-10-PCS; 2017-09-16)
PROC: 021309W Bypass Coronary Artery, Four or More Arteries from Aorta with Autologous Venous Tissue, Open Approach (ICD-10-PCS; 2017-09-16)
PROC: 06BQ4ZZ Excision of Left Saphenous Vein, Percutaneous Endoscopic Approach (ICD-10-PCS; 2017-09-16)
PROC: 06BP4ZZ Excision of Right Saphenous Vein, Percutaneous Endoscopic Approach (ICD-10-PCS; 2017-09-16)
PROC: 5A1221Z Performance of Cardiac Output, Continuous (ICD-10-PCS; 2017-09-16)
PROC: B24BZZ4 Ultrasonography of Heart with Aorta, Transesophageal (ICD-10-PCS; 2017-09-16)
DX: I25.110 Atherosclerotic heart disease of native coronary artery with unstable angina pectoris (principal); I21.4 Non-ST elevation (NSTEMI) myocardial infarction; E11.51 Type 2 diabetes mellitus with diabetic peripheral angiopathy without gangrene; D72.829 Elevated white blood cell count, unspecified; E66.9 Obesity, unspecified; E78.00 Pure hypercholesterolemia, unspecified; E78.5 Hyperlipidemia, unspecified; I11.9 Hypertensive heart disease without heart failure; G89.29 Other chronic pain; M54.9 Dorsalgia, unspecified; F17.210 Nicotine dependence, cigarettes, uncomplicated; Z68.35 Body mass index [BMI] 35.0-35.9, adult; Z98.1 Arthrodesis status; Z79.899 Other long term (current) drug therapy
CPT/HCPCS: 0232T; 92920; 93312; 93325; 93458; 99285; Z7506; Z7508; 36415; 36600; 71045; 71260; 80048; 80053; 80061; 81001; 81003; 82330; 82435; 82803; 82947; 82948; 83036; 83735; 83880; 84100; 84132; 84295; 84484; 85018; 85025; 85027; 85347; 85384; 85610; 85730; 86885; 86900; 86901; 86920; 87070; 93005; 93880; 93971; 94002; 94003; 94060; 94640; 94668; 94760; 97110; 97116; 97161; 97530; 99152; 99153; A4620; A6209; A6213; A6255; A6257; A6258; A6402; A6446; A6449; A7000; A7048; C1713; C1725; C1751; C1760; C1769; C1776; J0690; J1170; J1644; J1815; J1885; J1940; J2001; J2060; J2250; J2270; J2405; J2440; J2704; J3010; J3370; J3480; J3490; J7030; J7060; J7120; Q9967

== ENCOUNTER → 2017-09-16 10:17 | Outpatient (CLI) | payer BC ==
[~2017-09-16 10:17] MED LIST: ASPI-41 PO; CLON0.1T20 PO; COL100C PO; DICL-182 PO; FURO40TA4 PO; HYDR-3972 PO; HYDROcodone/acetaminophen 10/325mg tab PO PRN; LIDOcaine 2% (20mg/ml) 5ml vial ONE; MESSAGE TO NURSING PO ONE; METO25TA6 PO; METO50TA16 PO; MIDAZolam 1mg/ml 10ml vial ONE; NIFE90TA44 PO; NITR0.4T48; ROSU10TA35 PO; SUFENTANIL CITRATE 50 MCG/ML 2ml ampule IV ONE; TRAM1TAB36 PO; atorvastatin 20mg tablet PO SCH; ceFAZolin 1000mg inj ONE; ceFAZolin 2gm in dextrose, iso 100 ML IV ONE; cloNIDine 0.1 mg tablet PO SCH; dextrose 50%-water 50ml dispensing syringe IV PRN; ePHEDrine 50MG/ML INJ. ONE; esmolol inj. 10 ML IV ONE; insulin Lispro (HumaLOG) vial - multi-dose SQ SCH; insulin regular, human inj. 100 UNITS in normal saline 100ml IV soln 100 ML IV SCH; metoprolol tartrate 25mg tablet PO SCH; mupirocin 2% ointment 22GM NS SCH; nitroGLYCERIN 0.4mg SUBLingual tab SL SCH; phenylephrine 10mg/ml inj IV ONE; propofol inj 20 ML IV ONE; rocuronium 10mg/ml inj IV ONE; traMADol 50MG tablet PO PRN; vancomycin/NS 1 GM ADD-VANTAGE 250 ML IV ONE
== END | disposition home or self-care (01) ==
LOC: EDSTATUS 07:30 → SSTAY O 10:17
PROVIDERS: ATTEND Internal Medicine Interventional Cardiology
DX: R94.39 Abnormal result of other cardiovascular function study (principal)
CPT/HCPCS: 71046; J0690; J2001; J2250; J2370; J2704; J3490; J1815; J3370

== ENCOUNTER 2022-03-13 05:44 | Day surgery (SDC) | payer MEDICARE, BC ==
[2022-03-05 16:12] LABS: ALBUMIN 3.5 G/DL (3.4-5.0); ALBUMIN/GLOBULIN RATIO 1.1 (1.1-1.5); ALKALINE PHOSPHATASE 78 IU/L (46-116); BLOOD UREA NITROGEN 20 MG/DL (7-18); BUN/CREATININE RATIO 22.2 (5.4-32.0); CALCIUM 8.9 MG/DL (8.5-10.1); CHLORIDE 105 MMOL/L (99-107); PRE OP ALT 27 U/L (30-65); PRE OP ANION GAP 10 (8-16); PRE OP AST 14 U/L (10-37); PRE OP BILIRUB, TOTAL 0.3 MG/DL (0.0-1.0); PRE OP GLUCOSE 144 MG/DL (70-104); PRE OP SODIUM 141 MMOL/L (135-145); TOTAL CARBON DIOXIDE 26.4 MMOL/L (24-32); TOTAL PROTEIN 6.8 G/DL (6.4-8.2); eGFR 84 ML/MIN
[2022-03-05 16:16] LABS: PRE OP POTASSIUM 3.3 MMOL/L (3.4-5.1)
[2022-03-05 16:30] LABS: BASOPHILS % (AUTO) 0.4 % (0-1); EOSINOPHILS # (AUTO) 0.2 X10'3 (0-0.9); EOSINOPHILS % (AUTO) 1.6 % (0-6); LYMPHOCYTES # (AUTO) 5.4 X10'3 (1.1-4.8); LYMPHOCYTES % (AUTO) 44.9 % (21-51); MEAN CORPUSCULAR HEMOGLOBIN 30.2 PG (27.0-31.0); MEAN CORPUSCULAR HGB CONC 34.3 g/dL (33.0-36.5); MEAN CORPUSCULAR VOLUME 88.2 FL (78-98); MEAN PLATELET VOLUME 9.3 FL (7.4-10.4); MONOCYTES # (AUTO) 0.6 X10'3 (0-0.9); MONOCYTES % (AUTO) 5.1 % (2-12); NEUTROPHILS # (AUTO) 5.8 X10'3 (1.8-7.7); PRE OP HEMATOCRIT 41.2 % (42.0-52.0); PRE OP HEMOGLOBIN 14.1 g/dL (14.0-17.9); PRE OP PLATELET COUNT 165 X10'3 (140-440); RED BLOOD COUNT 4.67 X10'6 (4.70-6.10); RED CELL DISTRIBUTION WIDTH 12.8 % (11.5-14.5)
[~2022-03-13] VITALS: Ht 172.7 cm; Wt 99.7 kg
[~2022-03-13 05:44] MED LIST changes: +AMLO5TAB16 PO; -ASPI-41 PO; -CLON0.1T20 PO; +CLOP75TA33 PO; -COL100C PO; -DICL-182 PO; +DOCUMENT DATE & TIME OF BETA-BLOCKER PO ONE; -HYDROcodone/acetaminophen 10/325mg tab PO PRN; +IBUP-49 PO; -LIDOcaine 2% (20mg/ml) 5ml vial ONE; +LOSA100T57 PO; -MESSAGE TO NURSING PO ONE; -METO25TA6 PO; -METO50TA16 PO; +METO50TA17 PO; -MIDAZolam 1mg/ml 10ml vial ONE; +MULT-1085 PO; +NEOM10SO7 EACH EAR; -NIFE90TA44 PO; -NITR0.4T48; +POTA8TAB69 PO; -ROSU10TA35 PO; +ROSU40TA PO; -SUFENTANIL CITRATE 50 MCG/ML 2ml ampule IV ONE; -TRAM1TAB36 PO; -atorvastatin 20mg tablet PO SCH; -ceFAZolin 1000mg inj ONE; -ceFAZolin 2gm in dextrose, iso 100 ML IV ONE; +ceFAZolin inj. 2,000 MG in dextrose 5%-water 100 ML IV ONE; -cloNIDine 0.1 mg tablet PO SCH; -dextrose 50%-water 50ml dispensing syringe IV PRN; -ePHEDrine 50MG/ML INJ. ONE; -esmolol inj. 10 ML IV ONE; +famotidine 20mg tablet PO ONE; -insulin Lispro (HumaLOG) vial - multi-dose SQ SCH; -insulin regular, human inj. 100 UNITS in normal saline 100ml IV soln 100 ML IV SCH; -metoprolol tartrate 25mg tablet PO SCH; -mupirocin 2% ointment 22GM NS SCH; -nitroGLYCERIN 0.4mg SUBLingual tab SL SCH; -phenylephrine 10mg/ml inj IV ONE; -propofol inj 20 ML IV ONE; +ringers solution, lacted 1,000 ML IV SCH; -rocuronium 10mg/ml inj IV ONE; -traMADol 50MG tablet PO PRN; -vancomycin/NS 1 GM ADD-VANTAGE 250 ML IV ONE
[2022-03-13] MEDS ORDERED: BUPIVAcaine/PF 2.5mg/ml (0.25%) 10ml vial ONE (06:39)
[2022-03-13] MEDS ORDERED: ROPIVAcaine 0.5% (5mg/ml) 30ml vial ONE (06:39)
[2022-03-13 07:11] VITALS: BP 169/76
[2022-03-13 07:13] VITALS: BP 169/76
[2022-03-13] MEDS ORDERED: LIDOcaine 0.5% (5mg/ml) 50ml vial ONE (07:25)
[2022-03-13] MEDS ORDERED: proCHLORperazine 10 MG/2 ml inj IV PRN (07:40)
[2022-03-13] MEDS ORDERED: morphine 2 MG/ML inj. syringe IV PRN (07:40)
[2022-03-13] MEDS ORDERED: morphine 4 MG/ML inj SYRINge IV PRN (07:40)
[2022-03-13] MEDS ORDERED: acetaminophen 1,000mg/100ml IV 100 ML IV PRN (07:40)
[2022-03-13] MEDS ORDERED: ondansetron/PF 4mg/2ml inj IV PRN (07:40)
[2022-03-13] MEDS ORDERED: ringers solution, lacted 1,000 ML IV SCH (07:40)
[2022-03-13] MEDS ORDERED: meperidine/PF 25mg/ml syringe IV PRN (07:40)
[2022-03-13] MEDS ORDERED: fentaNYL/PF 50MCG/1 ML 2ML syringe IV PRN ×2 (07:40)
[2022-03-13] MEDS ORDERED: midazolam 1 mg/ML 2ml injection ONE (08:19)
[2022-03-13] MEDS ORDERED: fentaNYL/PF 50MCG/1 ML 2ML syringe ONE (08:19)
[2022-03-13] MEDS ORDERED: propofol inj 20 ML IV ONE (08:30)
[2022-03-13] MEDS ORDERED: LIDOcaine 2% (20mg/ml) 5ml vial ONE (08:30)
[2022-03-13 08:46] VITALS: BP 151/71
--- NOTE | 2022-03-13 08:46 | NUR ---
Received from OR via [facility], accompanied by Anesthesiologist DR CHAMBERLAIN and report given by Anesthesiolgist. PT PRESNTS WITH PIV 20G LEFT HAND, DRESSING ON RIGHT HAND CDI, VVS. Addendum: 03/13/22 at 0854 by Isabell Edmonds RN, RN Amended: Links added.
[2022-03-13 09:00] VITALS: BP 150/71
[2022-03-13 09:10] VITALS: BP 137/63
[2022-03-13 09:26] VITALS: BP 137/63
--- NOTE | 2022-03-13 09:26 | NUR ---
ALL DISCHARGE CRITERIA HAS BEEN MET. VSS, PAIN AT A TOLERABLE LEVEL, VOIDING AND ABLE TO SAFELY AMBULATE AND TRANSFER SELF. IV TAKEN OUT WITHOUT ANY COMPLICATIONS. ALL DISCHARGE INSTRUCTIONS COVERED WITH PATIENT AND ALL QUESTIONS ANSWERED. PATIENT TAKEN OUT VIA WHEELCHAIR TO PERSONAL VEHICLE WHERE FAMILY/FRIEND DROVE PATIENT HOME. Addendum: 03/13/22 at 0931 by Isabell Edmonds RN, RN Amended: Links added.
== END 2022-03-13 09:26 | disposition home or self-care (01) ==
LOC: PAS 05:44
PROVIDERS: ATTEND Orthopaedic Surgery Hand Surgery
DX: G56.01 Carpal tunnel syndrome, right upper limb (principal); I10 Essential (primary) hypertension; I25.2 Old myocardial infarction; M19.90 Unspecified osteoarthritis, unspecified site; K21.9 Gastro-esophageal reflux disease without esophagitis; Z79.82 Long term (current) use of aspirin; Z79.899 Other long term (current) drug therapy; Z20.822 Contact with and (suspected) exposure to COVID-19; Z98.890 Other specified postprocedural states; Z79.01 Long term (current) use of anticoagulants; Z95.1 Presence of aortocoronary bypass graft
CPT/HCPCS: 29848; 36415; 80053; 82948; 85025; 87811; 93005; J0690; J2250; J2704; J2795; J3010; J3490; J7030; J7060; J7120; Z7506; Z7512; A4215; A7000

== ENCOUNTER 2022-07-24 07:49 | Day surgery (SDC) | payer MEDICARE, BC ==
[2022-07-24] VITALS (9 sets, daily range): BP systolic 115–159; BP diastolic 65–100
[~2022-07-24] VITALS: Ht 172.7 cm; Wt 100.3 kg
[~2022-07-24 07:49] MED LIST changes: -DOCUMENT DATE & TIME OF BETA-BLOCKER PO ONE; -ceFAZolin inj. 2,000 MG in dextrose 5%-water 100 ML IV ONE; -famotidine 20mg tablet PO ONE; -ringers solution, lacted 1,000 ML IV SCH
[2022-07-24] MEDS ORDERED: normal saline 1,000 ML IV SCH (08:10)
[2022-07-24] MEDS ORDERED: diphenhydrAMINE 25mg capsule PO PRN (08:10)
[2022-07-24] MEDS ORDERED: ASPI81TA52 PO (08:57)
[2022-07-24] MEDS ORDERED: CHOL10008 PO (08:57)
[2022-07-24] MEDS ORDERED: HYDR-3972 PO (08:57)
[2022-07-24] MEDS ORDERED: LORazepam 2 mg/ml vial IV ONE (09:05)
[2022-07-24] MEDS ORDERED: iohexol 350 MG/ML 50ML vial IV ONE ×3 (09:50→11:36)
[2022-07-24] MEDS ORDERED: LIDOcaine 1% 30ml preserv. free vial ONE (09:50)
[2022-07-24] MEDS ORDERED: midazolam 1 mg/ML 2ml injection ONE ×4 (09:50→11:30)
[2022-07-24] MEDS ORDERED: fentaNYL/PF 50MCG/1 ML 2ML syringe ONE (09:50)
[2022-07-24] MEDS ORDERED: iohexol 350MG/ML 100ml bottle IV ONE ×2 (09:50→11:24)
[2022-07-24] MEDS ORDERED: heparin 1,000unit/ml 10ml vial 10 ML ONE (09:50)
[2022-07-24] MEDS ORDERED: proCHLORperazine 10 MG/2 ml inj ONE (11:10)
[2022-07-24] MEDS ORDERED: ondansetron/PF 4mg/2ml inj IV PRN (12:20)
[2022-07-24] MEDS ORDERED: proCHLORperazine 10 MG/2 ml inj IV PRN (12:20)
[2022-07-24] MEDS ORDERED: HYDROcodone/acetaminophen 5mg/325mg tablet PO PRN (12:20)
[2022-07-24] MEDS ORDERED: HYDROcodone/acetaminophen 10/325mg tab PO PRN (12:20)
[2022-07-24] MEDS ORDERED: normal saline 1000ml 1,000 ML IV SCH (12:20)
== END 2022-07-24 15:40 | disposition home or self-care (01) ==
LOC: SSTAY O 07:49
PROVIDERS: ATTEND Internal Medicine Cardiovascular Disease
DX: I25.118 Atherosclerotic heart disease of native coronary artery with other forms of angina pectoris (principal); I10 Essential (primary) hypertension; E78.00 Pure hypercholesterolemia, unspecified; E11.9 Type 2 diabetes mellitus without complications; Z95.1 Presence of aortocoronary bypass graft; Z79.01 Long term (current) use of anticoagulants; Z79.82 Long term (current) use of aspirin; Z79.899 Other long term (current) drug therapy; Z98.890 Other specified postprocedural states; Z88.8 Allergy status to other drugs, medicaments and biological substances; Z88.5 Allergy status to narcotic agent; Z87.891 Personal history of nicotine dependence
CPT/HCPCS: 36415; 82948; 83735; 85610; 93005; 93459; 99152; 99153; C1760; C1769; C1894; J0780; J1644; J2060; J2250; J3010; J3490; J7030; Q0163; Q9967; A6258; C1725